=== PATIENT | male | born 1995 | race Caucasian/White ===

== ENCOUNTER 2017-11-15 00:51 | Emergency (ER) | payer BC ==
[~2017-11-15] VITALS: Ht 167.6 cm; Wt 59.0 kg
[2017-11-15 03:37] VITALS: BP 121/63
== END 2017-11-15 04:19 | disposition home or self-care (01) ==
LOC: ER 00:51
DX: H66.91 Otitis media, unspecified, right ear (principal); J45.909 Unspecified asthma, uncomplicated; R05 Cough; J34.89 Other specified disorders of nose and nasal sinuses; J02.9 Acute pharyngitis, unspecified; Z98.890 Other specified postprocedural states; Z90.49 Acquired absence of other specified parts of digestive tract; Z90.89 Acquired absence of other organs
CPT/HCPCS: 99283